=== PATIENT | male | born 1990 | race Caucasian/White ===

== ENCOUNTER 2016-06-12 00:24 | Emergency (ER) | payer MEDICAID ==
[2016-06-12 00:25] VITALS: BMI 26.6
[2016-06-12 01:38] LABS: RBC URINE 1 /hpf (0-3); URINE BACTERIA RARE (<OCC); URINE BILIRUBIN NEGATIVE (NEGATIVE); URINE BLOOD NEGATIVE (NEGATIVE); URINE COLOR Yellow (YELLOW); URINE GLUCOSE (UA) NORMAL (Normal); URINE KETONE NEGATIVE (NEGATIVE); URINE LEUKOCYTE ESTERASE NEG Leu/uL (Negative); URINE PROTEIN NEGATIVE (NEGATIVE); URINE UROBILINOGEN NORMAL mg/dL (0.2-1.0); WBC URINE < 1 /hpf (0-5)
--- NOTE | 2016-06-12 03:38 | C.PDOC ---
Time Seen by Provider: 06/12/16 01:17 Chief Complaint (Nursing): Male Genitourinary History Per: Patient Onset/Duration Of Symptoms: Days (few) Current Symptoms Are (Timing): Still Present Severity: Moderate Quality Of Discomfort: Burning, "Pain" Associated Symptoms: Urinary Symptoms Alleviating Factors: None Additional History Per: Prior Records Past Medical History Reviewed: Historical Data, Nursing Documentation, Vital Signs Vital Signs: Last Vital Signs Temp 97.9 F 06/12/16 00:39 Pulse 76 06/12/16 00:39 Resp 20 06/12/16 00:39 BP 126/74 06/12/16 00:39 Pulse Ox 98 06/12/16 03:38 - Medical History PMH: Back Problems, Depression, Sexually Transmitted Disease Surgical History: No Surg Hx Family History: States: Unknown Family Hx - Social History Hx Tobacco Use: Yes Hx Alcohol Use: No Hx Substance Use: No - Immunization History Hx Tetanus Toxoid Vaccination: Yes Hx Influenza Vaccination: Yes Hx Pneumococcal Vaccination: No Review Of Systems Except As Marked, All Systems Reviewed And Found Negative. Constitutional: Negative for: Fever, Weakness Cardiovascular: Negative for: Chest Pain Respiratory: Negative for: Shortness of Breath Gastrointestinal: Negative for: Vomiting, Abdominal Pain Genitourinary: Positive for: Dysuria, Scrotal Pain Musculoskeletal: Negative for: Neck Pain, Back Pain Skin: Negative for: Rash Neurological: Negative for: Weakness, Numbness, Seizures, Altered Mental Status Physical Exam - Physical Exam Appears: Non-toxic, No Acute Distress Skin: Normal Color, Warm, Dry, No Rash Head: Atraumatic, Normacephalic Eye(s): bilateral: Normal Inspection, PERRL, EOMI Throat: Normal Neck: Normal ROM, Supple Lymphatic: No Adenopathy Cardiovascular: Rhythm Regular Respiratory: Normal Breath Sounds, No Accessory Muscle Use Gastrointestinal/Abdominal: Soft, No Tenderness Back: No CVA Tenderness Male Genital: Testicular Tenderness (mild), No Testicular Swelling, No Inguinal Tenderness, No Inguinal Swelling, No Scrotal Swelling, Circumcised Extremity: Normal ROM Neurological/Psych: Oriented x3, Normal Motor, Normal Sensation ED Course And Treatment O2 Sat by Pulse Oximetry: 98 Pulse Ox Interpretation: Normal - CT Scan/US Testicular US Other Rad Studies (CT/US): Read By Radiologist, Radiology Report Reviewed CT/US Interpretation: Small b/l hydroceles. Reassessment Condition: Improved Medical Decision Making Medical Decision Making: Given symptoms, will treat for epididymitis. Disposition Counseled Patient/Family Regarding: Studies Performed, Diagnosis, Need For Followup, Rx Given - Disposition Referrals: Nikolai Montilla Jr., MD [Staff Provider] - Disposition: HOME/ ROUTINE Disposition Time: 04:07 Condition: IMPROVED Additional Instructions: Practice safe sex (always use condoms). Follow up with a Urologist. Return to the ER if you develop fever, redness, swelling, worsening of symptoms or if you have any other concerns. Prescriptions: Doxycycline Monohydrate 100 mg PO BID #28 tablet Instructions: Hydrocele (ED) - Clinical Impression Clinical Impression: Hydrocele, bilateral, Scrotal pain
[2016-06-12] MEDS ORDERED: cefTRIAXone (Rocephin) 250 mg Inj IM STA (04:01)
[2016-06-12 04:22] VITALS: BP 125/84; PULSE 75; RESP 18; TEMP 98.2; O2SAT 99
--- NOTE | 2016-06-12 08:42 | US ---
Testicular ultrasound History: Testicular pain. Comparison: None available. Technique: Real-time sonography was performed through the scrotum with color Doppler and image documentation. Findings: Right testes: 5.0 x 2.2 x 2.9 centimeters. Normal flow. Homogeneous echotexture. Right epididymis measures 8 x 9 x 9 millimeters. Normal flow. Small right scrotal hydrocele. Left testes: 5.0 x 2.3 x 2.9 centimeters. Normal flow. Homogeneous echotexture. Left epididymis measures 9 x 6 x 12 millimeters. Small left scrotal hydrocele noted. Impression: Small bilateral hydroceles. Mild prominence of the scrotal wall measuring up to 4.3 millimeters on the right and up to 6 millimeters on the left. Clinical correlation. These findings were preliminarily reported at 3:51 a.m. on 06/12/[address] Nikolai Santiago from [employer] [facility].
== END 2016-06-12 04:22 | disposition home or self-care (01) ==
LOC: C.ER 00:24
DX: N43.3 Hydrocele, unspecified (principal); N50.82 Scrotal pain
CPT/HCPCS: 76870; 81001; 87086; 87491; 87591; 96372; 99284; J0696

== ENCOUNTER 2016-07-01 19:32 | Emergency (ER) | payer SELFPAY ==
[2016-07-01 19:32] VITALS: BMI 26.6
[2016-07-01 19:52] VITALS: BP 142/78; PULSE 96; RESP 20; TEMP 98.1; O2SAT 98
--- NOTE | 2016-07-01 20:11 | C.PDOC ---
History Of Present Illness Patient complains of dysuria for several weeks. Patient states he was seen and evaluated in ED and treated for STD with doxycycline. He states he went to STD clinic and was treated with Zithromax and shot. Patient states he continues to feel dysuria, and admits he is still sexually active, unsure if partner has been treated. He is requesting more antibiotics. Denies fever, abdominal pain, testicular pain, discharge, hematuria. Time Seen by Provider: 07/01/16 19:55 Chief Complaint (Nursing): Male Genitourinary History Per: Patient History/Exam Limitations: no limitations Onset/Duration Of Symptoms: Persistent Current Symptoms Are (Timing): Still Present Past Medical History Reviewed: Historical Data, Nursing Documentation, Vital Signs Vital Signs: Last Vital Signs Temp 98.1 F 07/01/16 19:49 Pulse 96 H 07/01/16 19:49 Resp 20 07/01/16 19:49 BP 142/78 07/01/16 19:49 Pulse Ox 98 07/01/16 20:17 - Medical History PMH: Back Problems, Depression, Sexually Transmitted Disease Family History: States: Unknown Family Hx - Social History Hx Tobacco Use: Yes Hx Alcohol Use: No Hx Substance Use: No - Immunization History Hx Tetanus Toxoid Vaccination: Yes Hx Influenza Vaccination: Yes Hx Pneumococcal Vaccination: No Review Of Systems Constitutional: Negative for: Fever Gastrointestinal: Negative for: Vomiting, Abdominal Pain, Diarrhea Genitourinary: Positive for: Dysuria Skin: Negative for: Rash Physical Exam - Physical Exam Appears: Non-toxic, No Acute Distress Skin: Warm, Dry, No Rash Head: Atraumatic, Normacephalic Eye(s): bilateral: Normal Inspection, EOMI Chest: Symmetrical Cardiovascular: Rhythm Regular Respiratory: Normal Breath Sounds Gastrointestinal/Abdominal: Soft, No Tenderness Extremity: Normal ROM, No Deformity, No Swelling Neurological/Psych: Oriented x3, Normal Speech ED Course And Treatment O2 Sat by Pulse Oximetry: 98 Pulse Ox Interpretation: Normal Medical Decision Making Medical Decision Making: UA was negative. Prior records reviewed and labs show negative GC/C and urine culture. US showed bilateral hydrocele. Patient treated for epididymis with doxycycline. Patient appears well, nontoxic and in no acute distress. I explained to patient cultures were negative. Plan is to order culture and will contact with results. I also recommend follow up with urologist for symptoms. Disposition Counseled Patient/Family Regarding: Diagnosis, Need For Followup, Rx Given - Disposition Referrals: Nikolai Montilla Jr., MD [Staff Provider] - [facility] [Outside] Disposition: HOME/ ROUTINE Disposition Time: 20:08 Condition: STABLE Additional Instructions: Please follow up with urology for further evaluation Culture was performed and may take 2-3 days for results You may call [facility] for any assistance [phone]. Prescriptions: Phenazopyridine [Pyridium] 100 mg PO Q8 #12 tab Instructions: Dysuria (ED) Forms: [facility] - POA Present On Arrival: None - Clinical Impression Clinical Impression: Dysuria
[2016-07-01 21:04] LABS: RBC URINE < 1 /hpf (0-3); URINE BILIRUBIN NEGATIVE (NEGATIVE); URINE BLOOD NEGATIVE (NEGATIVE); URINE COLOR Yellow (YELLOW); URINE GLUCOSE (UA) NORMAL (Normal); URINE KETONE NEGATIVE (NEGATIVE); URINE LEUKOCYTE ESTERASE NEG Leu/uL (Negative); URINE PROTEIN NEGATIVE (NEGATIVE); URINE UROBILINOGEN NORMAL mg/dL (0.2-1.0); WBC URINE < 1 /hpf (0-5)
== END 2016-07-01 20:43 | disposition home or self-care (01) ==
LOC: C.ER 19:32
DX: R30.0 Dysuria (principal)